=== PATIENT | male | born 1965 | race Caucasian/White ===

== ENCOUNTER 2018-09-15 11:15 | Day surgery (SDC) | payer OTHER ==
[2018-09-15] MEDS: CEFAZOLIN 2 GM/50 ML (PMX) 50 ML IVPB (10:00)
[2018-09-15] MEDS: SOD CHLORIDE 0.9% 1,000 ML IV (10:00)
[2018-09-15] MEDS ORDERED: HYDROmorphONE 1 MG/5 ML IV SYRINGE IV ×3 (14:30)
[2018-09-15] MEDS ORDERED: ONDANSETRON 4 MG INJ IV (14:30)
[2018-09-15] MEDS ORDERED: DIPHENHYDRAMINE 50 MG INJ IV (14:30)
[2018-09-15] MEDS ORDERED: OXYCODONE/ACETAMINOPHEN (5/325) TAB PO (14:30)
[2018-09-15] MEDS ORDERED: PROCHLORPERAZINE 10 MG INJ IV (14:30)
[2018-09-15] MEDS ORDERED: MEPERIDINE 25 MG INJ IV (14:30)
[2018-09-15] MEDS ORDERED: FENTAnyl 50 MCG/ML VIAL IV (14:30)
[2018-09-15] MEDS ORDERED: PROPOFOL 20 ML ×2 (14:36→14:58)
[2018-09-15] MEDS ORDERED: LIDOCAINE 2% (SDV) 5 ML INJ (14:36)
[2018-09-15] MEDS ORDERED: FENTAnyl 50 MCG/ML VIAL (14:36)
[2018-09-15] MEDS ORDERED: ROCURONIUM 50 MG INJ (14:36)
[2018-09-15] MEDS ORDERED: SUCCINYLCHOLINE CHLORIDE 100 MG/5 ML SYG IV (14:36)
[2018-09-15] MEDS ORDERED: MIDAZOLAM 1 MG/ML 2 ML INJ (14:37)
[2018-09-15] MEDS ORDERED: ROPIVACAINE 0.5 % 30 ML VIAL (14:37)
[2018-09-15] MEDS ORDERED: ONDANSETRON 4 MG INJ (14:53)
[2018-09-15] MEDS ORDERED: CEFAZOLIN 1 GM INJ (14:53)
[2018-09-15] MEDS ORDERED: DEXAMETHASONE 4 MG/ML 5 ML INJ (14:53)
[2018-09-15] MEDS ORDERED: HYDROmorphONE 2 MG/ML SYG (14:59)
[2018-09-15] MEDS ORDERED: EPHEDrine 25 MG/5 ML SYG (15:23)
[2018-09-15] MEDS ORDERED: SUGAMMADEX SODIUM 200 MG/2 ML VIAL IV (15:28)
[2018-09-15] MEDS ORDERED: HYDROCODONE/APAP (5/325) TAB PO (16:00)
== END 2018-09-15 17:15 | disposition home or self-care (01) ==
LOC: SDS 11:15
DX: K40.30 Unilateral inguinal hernia, with obstruction, without gangrene, not specified as recurrent (principal)
CPT/HCPCS: 49507